=== PATIENT | male | born 1960 | race African-American/Black ===

== ENCOUNTER 2020-04-10 08:18 | Outpatient (REF) | payer OTHER, SELFPAY ==
[2020-04-10 11:00] LABS: MANUAL DIFF FLAG NO
[2020-04-10 11:08] LABS: Basophils Absolute Auto 0.1 X10*3/uL (0.0-0.2); Basophils Percent Auto 0.4 % (0-2); Eosinophils Absolute Auto 0.3 X10*3/uL (0.0-0.4); Hematocrit 45.9 % (42-52); Hemoglobin 15.4 g/dl (14.0-18.0); Imm Gran Abs Auto 0.07 X10*3/uL (0.00-0.03); Imm Gran Pct Auto 0.6 % (0.0-0.4); Lymphocytes Absolute Auto 2.3 X10*3/uL (1.2-4.9); Lymphocytes Percent Auto 19.9 % (20-40); Mean Corpuscular HGB Conc 33.6 g/dl (31.0-36.0); Mean Corpuscular Hemoglobin 31.5 pg (27.0-33.0); Mean Corpuscular Volume 93.9 fL (80-98); Mean Platelet Volume 11.2 fL (9.4-12.4); Monocytes Absolute Auto 0.9 X10*3/uL (0.1-1.2); Monocytes Percent Auto 7.6 % (2-11); Neutrophils Absolute Auto 7.7 X10*3/uL (2.0-8.3); Neutrophils Percent Auto 68.5 % (45-73); Platelet Count 337 X10*3/uL (160-400); Red Blood Count 4.89 X10*6/uL (4.60-5.80); Red Cell Distribution Width 13.3 % (11.0-16.0); White Blood Count 11.3 X10*3/uL (4.8-10.8)
[2020-04-10 11:42] LABS: Alanine Aminotransferase 24 U/L (0-40); Albumin Level 4.4 g/dL (3.5-5.0); Alkaline Phosphatase 86 U/L (39-117); Anion Gap 14 (12-20); Aspartate Amino Transferase 16 U/L (5-37); Bilirubin Total 0.2 mg/dL (0.0-1.0); Blood Urea Nitrogen 13 mg/dL (9-16); Calcium 9.7 mg/dL (8.4-10.2); Carbon Dioxide 25 mmol/L (22-29); Chloride 105 mmol/L (96-108); Cholesterol 157 mg/dL; Estimated Glomerular Filt Rate > 60; Glucose Random 121 mg/dL (60-115); HDL Cholesterol 47 mg/dL; LDL Cholesterol Calculated 89 mg/dl; Potassium 4.9 mmol/l (3.3-5.1); Sodium 139 mmol/L (135-145); Total Protein 8.1 g/dL (6.5-8.0); Triglycerides 107 mg/dL
== END 2020-04-10 08:19 | disposition home or self-care (01) ==
LOC: HO.10HDL 08:18
PROVIDERS: Visit Provider Internal Medicine
DX: Z00.00 Encounter for general adult medical examination without abnormal findings (principal); E78.2 Mixed hyperlipidemia; I10 Essential (primary) hypertension; F72 Severe intellectual disabilities; G40.109 Localization-related (focal) (partial) symptomatic epilepsy and epileptic syndromes with simple partial seizures, not intractable, without status epilepticus
CPT/HCPCS: 36415; 80053; 80061; 85025

== ENCOUNTER 2020-07-17 10:02 | Outpatient (REF) | payer OTHER, SELFPAY ==
[2020-07-17 14:29] LABS: Alanine Aminotransferase 22 U/L (0-40); Albumin Level 4.4 g/dL (3.5-5.0); Alkaline Phosphatase 84 U/L (39-117); Anion Gap 13 (12-20); Aspartate Amino Transferase 17 U/L (5-37); Bilirubin Total 0.3 mg/dL (0.0-1.0); Blood Urea Nitrogen 10 mg/dL (9-16); Calcium 9.5 mg/dL (8.4-10.2); Carbon Dioxide 26 mmol/L (22-29); Chloride 103 mmol/L (96-108); Estimated Glomerular Filt Rate > 60; Glucose Fasting 99 mg/dL (60-99); Potassium 4.3 mmol/l (3.3-5.1); Sodium 138 mmol/L (135-145); Total Protein 8.1 g/dL (6.5-8.0)
[2020-07-17 15:53] LABS: Phenytoin Dilantin 4.5 ug/mL (10.0-20.0)
== END 2020-07-17 10:03 | disposition home or self-care (01) ==
LOC: HO.10HDL 10:02
PROVIDERS: Visit Provider Internal Medicine
DX: I10 Essential (primary) hypertension (principal); E78.2 Mixed hyperlipidemia; F72 Severe intellectual disabilities; G40.109 Localization-related (focal) (partial) symptomatic epilepsy and epileptic syndromes with simple partial seizures, not intractable, without status epilepticus
CPT/HCPCS: 36415; 80053; 80185

== ENCOUNTER 2021-02-02 07:55 | Outpatient (REF) | payer OTHER, SELFPAY ==
[2021-02-02 08:45] LABS: MANUAL DIFF FLAG NO
[2021-02-02 08:55] LABS: Basophils Absolute Auto 0.1 X10*3/uL (0.0-0.2); Basophils Percent Auto 0.5 % (0-2); Eosinophils Absolute Auto 0.6 X10*3/uL (0.0-0.4); Eosinophils Percent Auto 5.9 % (0-4); Hematocrit 45.1 % (42-52); Hemoglobin 15.3 g/dl (14.0-18.0); Imm Gran Abs Auto 0.05 X10*3/uL (0.00-0.03); Imm Gran Pct Auto 0.5 % (0.0-0.4); Lymphocytes Absolute Auto 1.8 X10*3/uL (1.2-4.9); Lymphocytes Percent Auto 17.2 % (20-40); Mean Corpuscular HGB Conc 33.9 g/dl (31.0-36.0); Mean Corpuscular Hemoglobin 31.4 pg (27.0-33.0); Mean Corpuscular Volume 92.4 fL (80-98); Mean Platelet Volume 11.2 fL (9.4-12.4); Monocytes Absolute Auto 0.9 X10*3/uL (0.1-1.2); Monocytes Percent Auto 8.1 % (2-11); Neutrophils Absolute Auto 7.3 X10*3/uL (2.0-8.3); Neutrophils Percent Auto 67.8 % (45-73); Platelet Count 316 X10*3/uL (160-400); Red Blood Count 4.88 X10*6/uL (4.60-5.80); Red Cell Distribution Width 13.3 % (11.0-16.0); White Blood Count 10.7 X10*3/uL (4.8-10.8)
[2021-02-02 09:13] LABS: Alanine Aminotransferase 16 U/L (0-40); Albumin Level 4.5 g/dL (3.5-5.0); Alkaline Phosphatase 71 U/L (39-117); Anion Gap 11 (12-20); Aspartate Amino Transferase 14 U/L (5-37); Bilirubin Total 0.4 mg/dL (0.0-1.0); Blood Urea Nitrogen 14 mg/dL (9-16); Carbon Dioxide 26 mmol/L (22-29); Chloride 104 mmol/L (96-108); Cholesterol 151 mg/dL; Estimated Glomerular Filt Rate > 60; Glucose Random 121 mg/dL (60-115); HDL Cholesterol 43 mg/dL; LDL Cholesterol Calculated 87 mg/dl; Potassium 4.3 mmol/L (3.3-5.1); Sodium 137 mmol/L (135-145); Total Protein 8.1 g/dL (6.5-8.0); Triglycerides 107 mg/dL
[2021-02-02 09:37] LABS: Prostate Specific Antigen 1.35 ng/mL (<0.05-4.0)
[2021-02-02 11:00] LABS: Phenytoin Dilantin 3.5 ug/mL (10.0-20.0)
== END 2021-02-02 07:56 | disposition home or self-care (01) ==
LOC: HO.LAB 07:55
PROVIDERS: PCP Internal Medicine; Visit Provider Internal Medicine
DX: Z12.5 Encounter for screening for malignant neoplasm of prostate (principal); E78.2 Mixed hyperlipidemia; G40.109 Localization-related (focal) (partial) symptomatic epilepsy and epileptic syndromes with simple partial seizures, not intractable, without status epilepticus; I10 Essential (primary) hypertension; N30.00 Acute cystitis without hematuria; Z79.899 Other long term (current) drug therapy
CPT/HCPCS: 36415; 80053; 80061; 80185; 84153; 85025

== ENCOUNTER 2021-03-27 08:18 | Outpatient (REF) | payer OTHER, SELFPAY ==
[2021-03-27 10:08] LABS: MANUAL DIFF FLAG NO
[2021-03-27 10:16] LABS: Basophils Absolute Auto 0.1 X10*3/uL (0.0-0.2); Basophils Percent Auto 0.6 % (0-2); Eosinophils Absolute Auto 0.5 X10*3/uL (0.0-0.4); Eosinophils Percent Auto 4.7 % (0-4); Hematocrit 46.4 % (42-52); Hemoglobin 15.5 g/dl (14.0-18.0); Imm Gran Abs Auto 0.04 X10*3/uL (0.00-0.03); Imm Gran Pct Auto 0.4 % (0.0-0.4); Lymphocytes Absolute Auto 1.7 X10*3/uL (1.2-4.9); Lymphocytes Percent Auto 17.3 % (20-40); Mean Corpuscular HGB Conc 33.4 g/dl (31.0-36.0); Mean Corpuscular Hemoglobin 31.1 pg (27.0-33.0); Mean Platelet Volume 11.3 fL (9.4-12.4); Monocytes Absolute Auto 0.8 X10*3/uL (0.1-1.2); Monocytes Percent Auto 7.7 % (2-11); Neutrophils Absolute Auto 6.9 X10*3/uL (2.0-8.3); Neutrophils Percent Auto 69.3 % (45-73); Platelet Count 329 X10*3/uL (160-400); Red Blood Count 4.99 X10*6/uL (4.60-5.80); Red Cell Distribution Width 13.4 % (11.0-16.0); White Blood Count 9.9 X10*3/uL (4.8-10.8)
[2021-03-27 10:45] LABS: Alanine Aminotransferase 17 U/L (0-40); Albumin Level 4.3 g/dL (3.5-5.0); Alkaline Phosphatase 64 U/L (39-117); Anion Gap 13 (12-20); Aspartate Amino Transferase 14 U/L (5-37); Bilirubin Total 0.5 mg/dL (0.0-1.0); Blood Urea Nitrogen 12 mg/dL (9-16); Calcium 9.9 mg/dL (8.4-10.2); Carbon Dioxide 24 mmol/L (22-29); Chloride 107 mmol/L (96-108); Estimated Glomerular Filt Rate > 60; Glucose Fasting 107 mg/dL (60-99); Potassium 4.5 mmol/L (3.3-5.1); Sodium 139 mmol/L (135-145); Total Protein 7.7 g/dL (6.5-8.0)
[2021-03-27 10:54] LABS: Phenytoin Dilantin 3.8 ug/mL (10.0-20.0)
== END 2021-03-27 08:19 | disposition home or self-care (01) ==
LOC: HO.10HDL 08:18
PROVIDERS: Visit Provider Internal Medicine
DX: Z00.00 Encounter for general adult medical examination without abnormal findings (principal); E78.2 Mixed hyperlipidemia; G40.109 Localization-related (focal) (partial) symptomatic epilepsy and epileptic syndromes with simple partial seizures, not intractable, without status epilepticus; I10 Essential (primary) hypertension; Z79.899 Other long term (current) drug therapy
CPT/HCPCS: 36415; 80053; 80185; 85025

== ENCOUNTER → 2021-10-04 10:40 | Outpatient (BNVA) | payer OTHER, SELFPAY | PROVIDERS: PCP Internal Medicine | DX: R39.15 Urgency of urination (principal) | CPT/HCPCS: 51798; 99202 ==

== ENCOUNTER 2021-11-29 10:34 | Outpatient (REF) | payer MEDICARE, MEDICAID, SELFPAY ==
[2021-11-29 13:58] LABS: MANUAL DIFF FLAG NO
[2021-11-29 14:01] LABS: Basophils Percent Auto 0.3 % (0-2); Eosinophils Absolute Auto 0.4 X10*3/uL (0.0-0.4); Hematocrit 47.4 % (42.0-52.0); Hemoglobin 16.1 g/dl (14.0-18.0); Imm Gran Abs Auto 0.05 X10*3/uL (0.00-0.03); Imm Gran Pct Auto 0.5 % (0.0-0.4); Lymphocytes Absolute Auto 2.2 X10*3/uL (1.2-4.9); Lymphocytes Percent Auto 23.1 % (20-40); Mean Corpuscular Hemoglobin 31.7 pg (27.0-33.0); Mean Corpuscular Volume 93.3 fL (80.0-98.0); Mean Platelet Volume 11.9 fL (9.4-12.4); Monocytes Percent Auto 10.2 % (2-11); Neutrophils Absolute Auto 5.9 x10*3/uL (2.0-8.3); Neutrophils Percent Auto 61.9 % (45-73); Platelet Count 330 X10*3/uL (160-400); Red Blood Count 5.08 X10*6/uL (4.60-5.80); Red Cell Distribution Width 13.3 % (11.0-16.0); White Blood Count 9.6 X10*3/uL (4.8-10.8)
[2021-11-29 14:15] LABS: Alanine Aminotransferase 19 U/L (0-40); Albumin Level 4.5 g/dL (3.5-5.0); Alkaline Phosphatase 83 U/L (39-117); Anion Gap 13 (12-20); Aspartate Amino Transferase 15 U/L (5-37); Bilirubin Total 0.3 mg/dL (0.0-1.0); Blood Urea Nitrogen 15 mg/dL (9-16); Carbon Dioxide 26 mmol/L (22-29); Chloride 103 mmol/L (96-108); Cholesterol 152 mg/dL; Estimated Glomerular Filt Rate > 60; Glucose Random 102 mg/dL (60-115); HDL Cholesterol 42 mg/dL; LDL Cholesterol Calculated 87 mg/dl; Potassium 4.4 mmol/L (3.3-5.1); Sodium 138 mmol/L (135-145); Total Protein 8.3 g/dL (6.5-8.0); Triglycerides 116 mg/dL
[2021-11-29 14:37] LABS: Prostate Specific Antigen 1.41 ng/mL (<0.05-4.0); Thyroid Stimulating Hormone 1.61 uIU/mL (0.32-4.0)
== END 2021-11-29 10:35 | disposition home or self-care (01) ==
LOC: HO.HMGCLDS 10:34
PROVIDERS: Absent Provider Urology; PCP Internal Medicine; Visit Provider Internal Medicine
DX: Z12.5 Encounter for screening for malignant neoplasm of prostate (principal); E78.2 Mixed hyperlipidemia; G40.109 Localization-related (focal) (partial) symptomatic epilepsy and epileptic syndromes with simple partial seizures, not intractable, without status epilepticus; I10 Essential (primary) hypertension; R35.0 Frequency of micturition
CPT/HCPCS: 36415; 80053; 80061; 84153; 84443; 85025

== ENCOUNTER → 2022-02-28 08:37 | Outpatient (BNVA) | payer MEDICARE, MEDICAID, SELFPAY | PROVIDERS: PCP Internal Medicine; Visit Provider Urology | DX: N40.1 Benign prostatic hyperplasia with lower urinary tract symptoms (principal); R35.0 Frequency of micturition | CPT/HCPCS: Q3014 ==

== ENCOUNTER → 2022-06-12 12:49 | Outpatient (BNVA) | payer MEDICARE, MEDICAID, SELFPAY | PROVIDERS: PCP Internal Medicine; Visit Provider Urology | DX: R35.0 Frequency of micturition (principal) | CPT/HCPCS: Q3014 ==

== ENCOUNTER 2022-07-30 10:41 | Outpatient (REF) | payer MEDICARE, MEDICAID, SELFPAY ==
[2022-07-30 14:20] LABS: Basophils Absolute Auto 0.1 X10*3/uL (0.0-0.2); Basophils Percent Auto 0.5 % (0-2); Eosinophils Absolute Auto 0.2 X10*3/uL (0.0-0.4); Eosinophils Percent Auto 2.3 % (0-4); Hemoglobin 15.9 g/dl (14.0-18.0); Imm Gran Abs Auto 0.03 X10*3/uL (0.00-0.03); Imm Gran Pct Auto 0.3 % (0.0-0.4); Lymphocytes Absolute Auto 1.9 X10*3/uL (1.2-4.9); Lymphocytes Percent Auto 19.4 % (20-40); MANUAL DIFF FLAG NO; Mean Corpuscular HGB Conc 33.8 g/dl (31.0-36.0); Mean Corpuscular Hemoglobin 31.1 pg (27.0-33.0); Mean Corpuscular Volume 91.8 fL (80.0-98.0); Mean Platelet Volume 11.4 fL (9.4-12.4); Monocytes Absolute Auto 0.8 X10*3/uL (0.1-1.2); Monocytes Percent Auto 8.3 % (2-11); Neutrophils Absolute Auto 6.6 x10*3/uL (2.0-8.3); Neutrophils Percent Auto 69.2 % (45-73); Platelet Count 278 X10*3/uL (160-400); Red Blood Count 5.12 X10*6/uL (4.60-5.80); Red Cell Distribution Width 13.2 % (11.0-16.0); White Blood Count 9.6 X10*3/uL (4.8-10.8)
[2022-07-30 15:32] LABS: Alanine Aminotransferase 18 U/L (0-40); Albumin Level 4.3 g/dL (3.5-5.0); Alkaline Phosphatase 88 U/L (39-117); Anion Gap 15 (12-20); Aspartate Amino Transferase 15 U/L (5-37); Bilirubin Total 0.3 mg/dL (0.0-1.0); Blood Urea Nitrogen 12 mg/dL (9-16); Calcium 9.5 mg/dL (8.4-10.2); Carbon Dioxide 25 mmol/L (22-29); Chloride 102 mmol/L (96-108); Cholesterol 118 mg/dL; Estimated Glomerular Filt Rate > 60; Glucose Fasting 108 mg/dL (60-99); HDL Cholesterol 31 mg/dL; LDL Cholesterol Calculated 61 mg/dl; Potassium 4.1 mmol/L (3.3-5.1); Prostate Specific Antigen 2.05 ng/mL (<0.05-4.0); Sodium 138 mmol/L (135-145); Thyroid Stimulating Hormone 1.86 uIU/mL (0.32-4.0); Total Protein 7.7 g/dL (6.5-8.0); Triglycerides 130 mg/dL
== END 2022-07-30 10:42 | disposition home or self-care (01) ==
LOC: HO.10HDL 10:41
PROVIDERS: Visit Provider Internal Medicine
DX: Z00.00 Encounter for general adult medical examination without abnormal findings (principal); Z12.5 Encounter for screening for malignant neoplasm of prostate; I10 Essential (primary) hypertension
CPT/HCPCS: 36415; 80053; 80061; 84153; 84443; 85025

== ENCOUNTER 2022-08-08 10:17 | Outpatient (REF) | payer MEDICARE, MEDICAID, SELFPAY ==
[2022-08-10 19:49] LABS: TS Negative Control Passed; TS Panel A 0; TS Panel B 0; TS Positive Control Passed; TSpotTB Negative (Negative)
== END 2022-08-08 10:18 | disposition home or self-care (01) ==
LOC: HO.10HDL 10:17
PROVIDERS: Visit Provider Internal Medicine
DX: Z11.1 Encounter for screening for respiratory tuberculosis (principal)
CPT/HCPCS: 36415; 86481

== ENCOUNTER 2022-11-29 07:50 | Outpatient (REF) | payer MEDICARE, MEDICAID, SELFPAY ==
[2022-11-29 11:26] LABS: Alanine Aminotransferase 29 U/L (0-40); Albumin Level 4.3 g/dL (3.5-5.0); Alkaline Phosphatase 91 U/L (39-117); Anion Gap 13 (12-20); Aspartate Amino Transferase 17 U/L (5-37); Bilirubin Total 0.5 mg/dL (0.0-1.0); Blood Urea Nitrogen 12 mg/dL (9-16); Calcium 9.5 mg/dL (8.4-10.2); Carbon Dioxide 26 mmol/L (22-29); Chloride 104 mmol/L (96-108); Estimated Glomerular Filt Rate > 60; Glucose Fasting 117 mg/dL (60-99); Potassium 4.3 mmol/L (3.3-5.1); Sodium 139 mmol/L (135-145); Total Protein 7.9 g/dL (6.5-8.0)
== END 2022-11-29 07:51 | disposition home or self-care (01) ==
LOC: HO.10HDL 07:50
PROVIDERS: Visit Provider Internal Medicine
DX: E78.00 Pure hypercholesterolemia, unspecified (principal); F32.5 Major depressive disorder, single episode, in full remission; I10 Essential (primary) hypertension; R73.01 Impaired fasting glucose; Z11.1 Encounter for screening for respiratory tuberculosis
CPT/HCPCS: 36415; 80053

== ENCOUNTER 2023-05-28 08:45 | Outpatient (AMB) | payer MEDICARE, MEDICAID, SELFPAY ==
--- NOTE | 2023-05-28 09:02 | A.OFFVIS_ITS ---
Intake Intake Visit Reasons: frequency- follow up/PVR Intake Note: Patient is present for Frequency Follow Up Urology Medication: Terazosin Blood Thinner: None PVR: 143ml's Ethylene Oxide Panelboard Operator Required: Yes Accompanied by: Unknown Allergies No Known Allergies Allergy (Verified 05/28/23 09:03) Medication List - Last Reconciled 05/28/23 by Jaswinder Castro MD fenofibrate 160 mg PO DAILY hydroxyzine HCl 25 mg PO BEDTIME hydroxyzine pamoate 25 mg PO DAILY PRN hydroxyzine pamoate 50 mg PO DAILY PRN lisinopril-hydrochlorothiazide 20-12.5 mg 1 tab PO DAILY lisinopril-hydrochlorothiazide 20-25 mg 1 tab PO DAILY paroxetine HCl 10 mg PO DAILY phenytoin sodium extended 100 mg PO TID sertraline 50 mg PO DAILY terazosin 5 mg PO BEDTIME 90 days HPI HPI Comments History of Present Illness Details Dm is a pleasant Bhutanese-speaking male. He is cared for by his family since he had cognitive deficits at and a seizure disorder. He is a patient of Dr. Peng. He is seen for the following urologic conditions - urgency frequency Voiding followup - PVR 15mls Discussion with niece who is caregiver Continues with alpha-olimpia - teraozisn 5mg Improved urgency and no accidents Does have some nocturia but drinks water prior to going to bed Follow-up 6 months PSA below 2.5 so not candidate finasteride Does have occasional constipation treated with MiraLax Lower urinary tract symptoms Predominantly irritative in nature Normal PVR PSA 11/25 1.4 PFSH Medical History Urinary frequency Advance Directives Date on File: 04/10/20 Review of Systems Const Denies chills and Denies fever(s) Card Reports no additional complaints and Denies syncope Resp Denies cough GI Denies abdominal pain and Denies heartburn Reports as per HPI and Denies change in libido Neuro Denies syncope Psych Denies change in libido Endo Denies change in libido Physical Exam Const General: cooperative, healthy appearing, comfortable and no acute distress Orientation/consciousness: patient oriented x3 HEENT Face and sinus: Yes normal facial exam Mouth: moist mucous membranes Neck Neck: Yes normal visual inspection, Yes full ROM and Yes trachea midline Chest Chest palpation & inspection: normal inspection of the chest Resp Effort & Inspection: normal respiratory effort, able to speak in complete sentences and no respiratory distress GI Inspection: Yes normal to inspection Back/Spine/Pelvis Cervical Spine: normal cervical lordosis Thoracic/Lumbar Spine: thoracic and lumbar spine normal to inspection Skin General skin exam: no rashes or lesions noted Neuro General: patient oriented x3, gait normal, tone normal and moves all extremities Extrem General: Yes normal to inspection and Yes capillary refill normal Office Procedures Post Void Residual Post Residual Void Post Void Residual (PVR): 14 20105-Ltlj Void Residual by ultrasound Results AMB Urinalysis, Automated UA Leukoctes 0 Hunter/uL Last Edit by [employer] on 05/28/23 09:17 UA Nitrite Negative Last Edit by [employer] on 05/28/23 09:17 UA Urobilinogen 0.2 mg/dL Last Edit by [employer] on 05/28/23 09:17 UA Protein 0 mg/dL Last Edit by [employer] on 05/28/23 09:17 UA pH 6.0 Last Edit by [employer] on 05/28/23 09:17 UA Blood 0 Richard/uL Last Edit by [employer] on 05/28/23 09:17 UA Specific Mosquero 1.020 Last Edit by [employer] on 05/28/23 09:17 UA Ketone Negative Last Edit by [employer] on 05/28/23 09:17 UA Bilirubin 0 mg/dL Last Edit by [employer] on 05/28/23 09:17 UA Glucose 0 mg/dL Last Edit by [employer] on 05/28/23 09:17 Results Reviewed Results Reviewed: Laboratory Last Values Urine pH (Auto) 6.0 05/28/23 09:03 Specific [place] (Auto) 1.020 05/28/23 09:03 Urine Protein (Auto) 0 mg/dL 05/28/23 09:03 Glucose (UA)(Auto) 0 mg/dL 05/28/23 09:03 Urine Ketones (Auto) Negative 05/28/23 09:03 Urine Blood (Auto) 0 Richard/uL 05/28/23 09:03 Urine Nitrite (Auto) Negative 05/28/23 09:03 Urine Bilirubin (Auto) 0 mg/dL 05/28/23 09:03 Urine Urobilinogen (Auto) 0.2 mg/dL 05/28/23 09:03 Leukocyte Esterase (Auto) 0 Hunter/uL 05/28/23 09:03 Assessment & Plan Assessment & Plan (1) Urinary frequency: Code(s): R35.0 - Frequency of micturition Plan Twelve month follow-up PVR Orders: Orders AMB Urinalysis Automated Today Z13.9 - Encounter for screening, unspecified AMB Post Void Residual by ultrasound Today R35.0 - Frequency of micturition Medications: Refilled terazosin 5 mg PO BEDTIME 90 caps 3RF 90 days N40.1 - Benign prostatic hyperplasia with lower urinary tract symptoms, R35.0 - Frequency of micturition Patient Instructions: Imaging studies, laboratory and physical exam results were discussed and reviewed in detail. No major barriers to patient understanding were identified. An opportunity to ask questions regarding the treatment plan was provided. All questions were answered. The patient expressed understanding and agreement with the above treatment plan. The patient is aware they should contact our office by phone for worsening of their current condition or the appearance of new urologic symptoms. Compliance is encouraged with any medications and followup testing that is ordered. It is a privilege to participate in the urologic care of your patient. If you have any questions or concerns regarding treatment for the above conditions, or other urologic issues, please do not hesitate to contact me. The office telephone contact is [phone]. This note is constructed using voice recognition software. While every effort has been made to ensure accuracy campaign consultant errors may have been included. Yours sincerely, Dr Jaswinder Castro MD, [facility] - Urology Providers of Expert, Compassionate Care for the Genitourinary System Coding Level of Care Code Est Pt Level 4 (25764) Diagnoses Urinary frequency R35.0 CPT Codes Post Residual Void - PVR CPT Code: 78413-Jphl Void Residual by ultrasound ([id number])
== END 2023-05-28 09:26 | disposition home or self-care (01) ==
PROVIDERS: PCP Internal Medicine; Visit Provider Urology
DX: R35.0 Frequency of micturition (principal); Z13.9 Encounter for screening, unspecified
CPT/HCPCS: 99213

== ENCOUNTER → 2023-05-28 08:45 | Outpatient (BNVA) | payer MEDICARE, MEDICAID, SELFPAY | PROVIDERS: PCP Internal Medicine; Visit Provider Urology | DX: R35.0 Frequency of micturition (principal) | CPT/HCPCS: 51798; 81003; 99212 ==

== ENCOUNTER 2023-07-24 07:45 | Outpatient (REF) | payer MEDICARE, MEDICAID, SELFPAY ==
[2023-07-24 07:59] LABS: MANUAL DIFF FLAG NO
[2023-07-24 08:09] LABS: Basophils Percent Auto 0.4 % (0-2); Eosinophils Absolute Auto 0.3 X10*3/uL (0.0-0.4); Eosinophils Percent Auto 3.7 % (0-4); Hematocrit 46.2 % (42.0-52.0); Hemoglobin 16.2 g/dl (14.0-18.0); Imm Gran Abs Auto 0.02 X10*3/uL (0.00-0.03); Imm Gran Pct Auto 0.2 % (0.0-0.4); Lymphocytes Absolute Auto 1.8 X10*3/uL (1.2-4.9); Lymphocytes Percent Auto 20.9 % (20-40); Mean Corpuscular HGB Conc 35.1 g/dl (31.0-36.0); Mean Corpuscular Hemoglobin 32.7 pg (27.0-33.0); Mean Corpuscular Volume 93.3 fL (80.0-98.0); Mean Platelet Volume 11.1 fL (9.4-12.4); Monocytes Absolute Auto 0.6 X10*3/uL (0.1-1.2); Monocytes Percent Auto 7.5 % (2-11); Neutrophils Absolute Auto 5.6 x10*3/uL (2.0-8.3); Neutrophils Percent Auto 67.3 % (45-73); Platelet Count 240 X10*3/uL (160-400); Red Blood Count 4.95 X10*6/uL (4.60-5.80); Red Cell Distribution Width 13.3 % (11.0-16.0); White Blood Count 8.4 X10*3/uL (4.8-10.8)
[2023-07-24 08:18] LABS: Estimated Average Glucose 111 mg/dL; Hemoglobin A1c % 5.5 % (<6.0)
[2023-07-24 08:44] LABS: Alanine Aminotransferase 24 U/L (0-40); Albumin Level 4.1 g/dL (3.5-5.0); Alkaline Phosphatase 99 U/L (39-117); Anion Gap 12 (12-20); Aspartate Amino Transferase 17 U/L (5-37); Bilirubin Total 0.3 mg/dL (0.0-1.0); Blood Urea Nitrogen 12 mg/dL (9-16); Calcium 9.3 mg/dL (8.4-10.2); Carbon Dioxide 24 mmol/L (22-29); Chloride 107 mmol/L (96-108); Cholesterol 110 mg/dL (<200); Estimated Glomerular Filt Rate > 60; Glucose Random 136 mg/dL (60-115); HDL Cholesterol 30 mg/dL (>40); LDL Cholesterol Calculated 51 mg/dL (<100); Potassium 3.7 mmol/L (3.3-5.1); Sodium 139 mmol/L (135-145); Total Protein 7.6 g/dL (6.5-8.0); Triglycerides 146 mg/dL (<150)
[2023-07-24 08:59] LABS: Thyroid Stimulating Hormone 2.22 uIU/mL (0.32-4.0)
== END 2023-07-24 07:46 | disposition home or self-care (01) ==
LOC: HO.LAB 07:45
PROVIDERS: PCP Internal Medicine; Visit Provider Internal Medicine
DX: E78.00 Pure hypercholesterolemia, unspecified (principal); G40.109 Localization-related (focal) (partial) symptomatic epilepsy and epileptic syndromes with simple partial seizures, not intractable, without status epilepticus; I10 Essential (primary) hypertension; N31.8 Other neuromuscular dysfunction of bladder; R15.9 Full incontinence of feces; R73.01 Impaired fasting glucose
CPT/HCPCS: 36415; 80053; 80061; 83036; 84443; 85025

== ENCOUNTER 2023-08-16 07:31 | Outpatient (REF) | payer MEDICARE, MEDICAID, SELFPAY ==
--- NOTE | ~2023-08-16 | XR_ITS ---
EXAMINATION: XR LEFT ANKLE, LEFT FOOT CLINICAL INFORMATION: Ankle and foot pain, no injury. COMPARISON: 05/14/2013 left ankle images are provided today 08/20/2023. TECHNIQUE: 2 views of the left ankle. 3 views of the left foot. FINDINGS: Left Ankle: The bones are diffusely demineralized. Redemonstration of severe degenerative arthritis in the tibiotalar and subtalar joints with marked flattening of the subjacent articular surfaces and hypertrophic change. Redemonstration of marked spurring at the dorsal and plantar aspects of the calcaneus. Redemonstration of dystrophic calcifications in the soft tissues along the plantar aspect of the calcaneus, increased. Moderate degenerative arthritis in the mid foot. Left Foot: The bones are diffusely demineralized. Mild degenerative changes in the first metatarsophalangeal joint. Alignment preserved. XR/XR foot LT min 3V IMPRESSION: 1. Redemonstration of severe degenerative arthritis in the tibiotalar and subtalar joints. 2. Redemonstration of marked spurring at the dorsal and plantar aspects of the calcaneus. 3. Moderate degenerative arthritis in the mid foot. 4. Mild degenerative changes in the first metatarsophalangeal joint. 5. Additional imaging with CT scan or MRI should be considered for better visualization as these modalities are much more sensitive for detection of fracture or other underlying pathology.
--- NOTE | ~2023-08-16 | XR_ITS ---
EXAMINATION: XR LEFT ANKLE, LEFT FOOT CLINICAL INFORMATION: Ankle and foot pain, no injury. COMPARISON: 05/14/2013 left ankle images are provided today 08/20/2023. TECHNIQUE: 2 views of the left ankle. 3 views of the left foot. FINDINGS: Left Ankle: The bones are diffusely demineralized. Redemonstration of severe degenerative arthritis in the tibiotalar and subtalar joints with marked flattening of the subjacent articular surfaces and hypertrophic change. Redemonstration of marked spurring at the dorsal and plantar aspects of the calcaneus. Redemonstration of dystrophic calcifications in the soft tissues along the plantar aspect of the calcaneus, increased. Moderate degenerative arthritis in the mid foot. Left Foot: The bones are diffusely demineralized. Mild degenerative changes in the first metatarsophalangeal joint. Alignment preserved. XR/XR ankle LT 2V IMPRESSION: 1. Redemonstration of severe degenerative arthritis in the tibiotalar and subtalar joints. 2. Redemonstration of marked spurring at the dorsal and plantar aspects of the calcaneus. 3. Moderate degenerative arthritis in the mid foot. 4. Mild degenerative changes in the first metatarsophalangeal joint. 5. Additional imaging with CT scan or MRI should be considered for better visualization as these modalities are much more sensitive for detection of fracture or other underlying pathology.
== END 2023-08-16 07:32 | disposition home or self-care (01) ==
LOC: HO.XRAY 07:31
PROVIDERS: PCP Internal Medicine; Visit Provider Internal Medicine
DX: M25.572 Pain in left ankle and joints of left foot (principal)
CPT/HCPCS: 73600; 73630

== ENCOUNTER 2023-09-25 09:40 | Outpatient (AMB) | payer MEDICARE, MEDICAID, SELFPAY ==
--- NOTE | 2023-09-25 10:04 | A.OFFVIS_ITS ---
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 Patient niece states surgery on bilateral feet back in the 70's due to inverted feet. She is unaware of where he had the surgery. He was recently seen by his PCP who ordered xrays and referred to orthopedics. She states recently he has been dragging his foot more than usual. He does not complain of pain however his niece notices his facial expressions and knows he has discomfort. Hx of severe cognitive impairment and seizures. Allergies No Known Allergies Allergy (Verified 09/25/23 10:15) HPI packing room supervisor- LT ANKLE PAIN HPI Details 63-year-old male who presents to the off ice today with his niece for evaluation of left ankle pain. He had a bilateral feet surgery in the 1970s due to inverted feet. Her niece reports she is unaware of the DOS. He was recently seen by his PCP who performed and x-rays and referred him to our office. Her niece reports he has been dragging his feet more than usual. He denies having any pain however his niece notices his facial expressions and knows he has discomfort. He has a history of severe cognitive impairment and seizures. [facility] Medical History (Updated 09/25/23 @ 11:23 by Adolfo Mcclellan PA-C) Urinary frequency Surgical History (Updated 09/25/23 @ 10:19 by CAITIE Bonilla) History of foot surgery Social History (Updated 09/25/23 @ 10:11 by CAITIE Bonilla) Patient Tobacco Use Status: Never used Tobacco Advance Directives Date on File: 04/10/20 Current occupational status: unemployed and disabled Review of Systems Const All systems reviewed & are unremarkable except as noted in HPI and below Physical Exam Vital Signs: BMI result Body Mass Index 28.7 Const General: cooperative, healthy appearing, comfortable, no acute distress, well developed and alert Orientation/consciousness: patient oriented x3 HEENT Head: Yes normal to inspection, Yes normocephalic and Yes atraumatic Eyes General: appearance normal, both eyes and all related structures Resp Effort & Inspection: normal respiratory effort and able to speak in complete sentences Cardio Rate: regular rate Peripheral pulses: Peripheral pulses 2+ throughout GI Palpation (GI): Soft to palpation Skin Lesions: no lesions Rashes: no rashes Neuro General: patient oriented x3 Extrem Other: Left foot: Normal to inspection. He has no tenderness to palpation. There is obvious joint collapse along the medial aspect of ankle. NVI. Results Reviewed Results Reviewed: X-rays of the left foot and ankle obtained on 08/16/23 show severe OA with joint collapse. Assessment & Plan Assessment & Plan (1) Osteoarthritis of left ankle: Code(s): M19.072 - Primary osteoarthritis, left ankle and foot Plan I discussed with his niece who is also his technical program manager that the extent of his arthritis limits treatment options as the recommendations would be conservative with being strengthening exercises and OTC anti-inflammatories for pain. If he had pain and significant limitations with ambulation, I would have disused about ankle fusion and also refer him to a foot and ankle specialist. He does not appear in pain and can walk without difficulty. She will contact moving forward if he develops any limitations, otherwise as needed. Patient Instructions: Scribed for Adolfo Mcclellan PA-C, by Zeeshan Ramires medical services manager, on 09/25/2023 at 10:00 AM EST. I, Adolfo Mcclellan PA-C, have personally reviewed and agree with the information entered by the scribe. Coding Level of Care Code New Pt Level 3 (03947) Diagnoses Osteoarthritis of left ankle M19.072
[2023-09-25 10:08] VITALS: BMI 28.7
== END 2023-09-25 10:55 | disposition home or self-care (01) ==
PROVIDERS: PCP Internal Medicine; Visit Provider Physician Assistant
DX: M19.072 Primary osteoarthritis, left ankle and foot (principal)
CPT/HCPCS: 99203

== ENCOUNTER → 2023-09-25 09:40 | Outpatient (BNVA) | payer MEDICARE, MEDICAID, SELFPAY | PROVIDERS: PCP Internal Medicine; Visit Provider Physician Assistant | DX: M19.072 Primary osteoarthritis, left ankle and foot (principal) | CPT/HCPCS: 99202 ==

== ENCOUNTER 2023-11-04 07:51 | Outpatient (REF) | payer MEDICARE, MEDICAID, SELFPAY ==
[2023-11-07 00:53] LABS: TS Negative Control Passed; TS Panel A 0; TS Panel B 0; TS Positive Control Passed; TSpotTB Negative (Negative)
== END 2023-11-04 07:52 | disposition home or self-care (01) ==
LOC: HO.10HDL 07:51
PROVIDERS: Visit Provider Internal Medicine
DX: Z11.1 Encounter for screening for respiratory tuberculosis (principal)
CPT/HCPCS: 36415; 86481

== ENCOUNTER 2024-02-03 06:26 | Day surgery (SDC) | payer MEDICARE, MEDICAID, SELFPAY ==
[2024-01-30 14:05] VITALS: BMI 32.8
--- OUTSIDE RECORDS SUMMARY | 2024-02-03 06:28 | XMS_ITS ---
Author Organization [facility] Address [address] [place] [address] Care Team Providers Care Belt Notcher Name Role Phone JalilBri price Primary Care Provider Unavailab Russell Galvan Jr REASON FOR VISIT SCREENING COLON Encounters Encounter Location Date Provider Diagnosis [facility] [place] Outpatient [address] [place] [id number] 12/12/2023 Russell Cuadra Jr PLAN OF TREATMENT Next Appt Details Provider Name:Russell gentile Jr, 02/03/2024 07:30:00 AM, [address] [place] [address] , [place], [place], [phone],
--- OUTSIDE RECORDS SUMMARY | 2024-02-03 06:28 | XMS_ITS ---
Author Organization [facility] Address [address] [place] [address] Care Team Providers Care Jackhammer Operator Name Role Phone JalilBri price Primary Care Provider Unavailab Russell Galvan Jr [phone] REASON FOR VISIT screening Encounters Encounter Location Date Provider Diagnosis [facility] [place] [place] Out[place] [address] [place] [id number] 02/03/2024 Russell Cuadra Jr PLAN OF TREATMENT Next Appt Details Provider Name:Russell gentile Jr, 02/03/2024 07:30:00 AM, [address] [place] [address] , [place], [place], [phone],
--- OUTSIDE RECORDS SUMMARY | 2024-02-03 06:28 | XMS_ITS ---
Author Organization [facility] Address [address] [place] [address] Care Team Providers Care Meat Apprentice Name Role Phone Bri Peng Primary Care Provider Unavailab Russell Galvan Jr [phone] REASON FOR VISIT r/s Encounters Encounter Location Date Provider Diagnosis [facility] [address] [place] [address] 11/05/2023 Russell Cuadra Jr PLAN OF TREATMENT Next Appt Details Provider Name:Russell gentile Jr, 02/03/2024 07:30:00 AM, [address] [place] [address] , [place], [place], [phone],
--- OUTSIDE RECORDS SUMMARY | 2024-02-03 06:28 | XMS_ITS | Patient Health Record ---
Author Organization [facility] Address [address] [place] [address] Care Team Providers Care Mail Handler Equipment Operator Name Role Phone Bri Peng Primary Care Provider Unavailab Russell Galvan Jr Unavailable ALLERGIES No Known Allergies REASON FOR REFERRAL No Information MEDICATIONS Medication SIG (Take, Route, Frequency, Duration) Notes Start Date End Date Status PARoxetine HCl 20 MG TAKE 1 TABLET BY MO UTH EVERY DAY Oral for 90 Active Lisinopril 10 MG TAKE 1 TABLET BY COURTNEY TH EVERY DAY Oral for 90 Active Sertraline HCl 50 MG TAKE 1 TABLET BY MO UTH EVERY MORNING Oral for 55 Active Golytely 236 GM as directed before colonoscopy Orally every 15 minutes for 1 day(s) 10/15/2023 Active MiraLax - as directed Orally A ctive Atorvastatin Calcium 20 MG TAKE 1 TABLET BY MOUTH EVERYDAY AT BEDTIME Oral for 90 Active Phenytoin Sodium Extended 100 MG TAKE 1 CAPSULE BY MOUTH THREE TIMES A DAY Oral for 90 Active IMMUNIZATIONS Vaccine Route Administration Date Status Comme nts Influenza Unknown 03/07/2018 Administered Influenza Unknown 05/27/2023 Administered SOCIAL HISTORY Tobacco Use: Social History Observation Description Date Details (start date - stop date) Never Smoker NA - NA Sex Assigned At : Social History Observation Description Sex Assigned At Unknown Tobacco Use/Smoking Question Answer Notes Patient is a nonsmoker Alcohol Screen Question Answer Notes Did you have a drink containing alcohol in the p ast year? No Points 0 Interpretation Negative PROBLEMS Problem Type ICD Code Onset Dates Problem Status W/U Status Risk SNOMED Code Notes Problem Abnormal findings in stool (R19.5) Active confirmed [id number] Problem Colon cancer screening (Z12.11) Active confirmed [id number] VITAL SIGNS Temperature 97.9 degrees Fahrenheit 10/15/2023 Blood pressure diastolic 00 mm Hg 10/15/2023 Height 66 in 10/15/2023 Blood pressure systolic 000 mm Hg 10/15/2023 Weight 203 lb 6 oz lbs 10/15/2023 BMI 32.82 kg/m2 10/15/2023 Encounters Encounter Location Date Provider Diagnosis [facility] Outpatient [address] [place] [id number] 12/12/2023 Russell Cuadra Jr [facility] Outpatient [address] [place] [id number] 02/03/2024 Russell Cuadra Jr [facility] [address] [place] [phone] 10/15/2023 Russell Cuadra Jr Colon cancer screening Z12.11 [facility] [address] [place] [phone] 06/04/2023 Russell Cuadra Jr [facility] [address] [place] [phone] 11/05/2023 Russell Cuadra Jr ASSESSMENTS Encounter Date Diagnosis Assessment Notes Treatment Notes Treatment Clinical Notes 10/15/2023 Colon cancer screening (ICD-10 - Z12.11) Colonoscopy material was printed PLAN OF TREATMENT Pending Test Test Name Order Date US RENAL BILATERAL 05/06/2019 Future Test Test Name Order Date COLONOSCOPY 03/25/2019 COLONOSCOPY CONTROL OF BLEEDING ANY METH OD 10/15/2023 Next Appt Details Provider Name:Russell gentile Jr, 02/03/2024 07:30:00 AM, [address] [place] [address], [phone], Insurance Providers Payer Name Payer Address Payer Phone Subscriber Number Group Number Insured Name Patient Relationship to Insured Coverage Start Date Coverage End Date [place] OF [place] [address] [place] [id number] ADONAY BRENNER Self - patient is the insured MEDICAID OF [facility] [address] [place] [address] [id number] ADONAY BRENNER Self - patient is the insured MEDICAL (GENERAL) HISTORY Medical History History ICD Code seizures hypertension elevated cholesterol intellectual disability depression Colonoscopy 03/25, limited to hepatic flexure due to prep. Followup CT colonography also limited. Five-year followup Surgical History Surgery Date(Month/Year) bilateral ankle/foot surgery 1978
[2024-02-03 06:30] VITALS: BMI 32.0
[2024-02-03] MEDS: Sodium Phosphate,Mono-Dibasic 133 ML ENEMA PR (07:00)
[2024-02-03 07:01] VITALS: BP 139/88; PULSE 73; RESP 16; TEMP 36.6; O2SAT 94
--- NOTE | 2024-02-03 07:31 | MHC.SHP ---
Pre-Procedural Eval Section A - 24 Hr Update-Section A only Date of Service: 02/03/24 Section B - Complete if H&P > 30 days Chief Complaint: Encounter for screening for malignant neoplasm of Details of Present Illness: see H&P no changes Relevant Family History (Specify if Yes): No Relevant Social History: None Present Medications: see Short Stay Collaborative assessment Medical History: No relevant PMH Allergies: Allergies Allergy/AdvReac Type Severity Reaction Status Date / Time No Known Allergies Allergy Verified 02/03/24 06:43 Review of Systems Sugical H&P ROS: Negative: Constitution, Cardiovascular, Respiratory, Neurological, Psychiatric, Hem-Onc, Allergic/Immunologic, Gastrointestinal, Genitourinary, Musculoskeletal, Integumentary, Endocrine and Eyes/Ears/Nose/Throat Exam Surgical H&P Exam: Normal: HEENT, Normal: Heart, Normal: Lungs, Normal: Extremities, Normal: Abdomen, Normal: Skin and Normal: Neurological Plan Diagnosis/Plan: Unchanged I have reviewed the history and physical and performed a pertinent physical examination on my patient. No changes have occurred unless specified. Time Spent With Patient Time: Total time managing care of this patient today ____ minutes.
--- NOTE | 2024-02-03 07:49 | HO.ANESPROP2 ---
HPI - Anesthesia Eval Consult details Narrative: 63 M colonoscopy PMF Active Problems Active Problems: All Active Problems Osteoarthritis of left ankle (Acute) Urinary frequency (Acute) Past Medical History Medical History Depression Seizures Intellectual disability Urinary frequency Family History Family history of problems with anesthesia: No Surgical History Surgical History H/O colonoscopy History of foot surgery History of Problems with Anesthesia: No Social History Social History Patient Tobacco Use Status: Never used Tobacco Use of substances other than those prescribed or required for medical reasons: No Are you DNR?: No Advance Directives: No Advance Directives Information Provided: Yes Advance Directives Date on File: 04/10/20 Current occupational status: unemployed and disabled Meds Allergies Allergy/AdvReac Type Severity Reaction Status Date / Time No Known Allergies Allergy Verified 02/03/24 06:43 Active Medications: Current Medications Sodium Biphosphate/Sodium Phosphate (Sodium Phosphate,[place]-Dibasic 133 Ml Enema) 133 ml [place] ONCE PRN PRN Reason: Pre-Op Surgical Prep Last Admin: 02/03/24 07:00 Dose: 133 ml Home Medications ?Medication ?Instructions ?Recorded ?Confirmed ?Last Taken ?Type phenytoin sodium extended 100 mg 100 mg PO TID 10/04/21 02/03/24 02/02/24 History capsule hydroxyzine HCl 25 mg tablet 25 mg PO BEDTIME 02/27/22 01/30/24 Unknown History hydroxyzine pamoate 50 mg capsule 50 mg PO DAILY PRN Anxiety 05/13/22 01/30/24 Unknown History sertraline 50 mg tablet 50 mg PO DAILY 05/28/23 02/03/24 02/02/24 History atorvastatin 20 mg tablet 20 mg PO DAILY 09/25/23 02/03/24 02/02/24 History lisinopril 10 mg tablet 10 mg PO DAILY 01/30/24 02/03/24 02/02/24 History Exam Height,Weight and Vital Signs: Height 5 ft 6 in Weight 198 lb Last Vital Signs Temp 97.8 F 02/03/24 07:01 Pulse 73 02/03/24 07:01 Resp 16 02/03/24 07:01 BP 139/88 02/03/24 07:01 Pulse Ox 94 02/03/24 07:01 O2 Del Method Room Air 02/03/24 07:01 Airway Mallampati Class: II TM Dist: >3cm Neck ROM: Full Loose/Missing/Broken Teeth: Yes Assessment and Plan Final Anesthetic Review Family History of Problems with Anesthesia: No History of Problems with Anesthesia: No NPO: Yes ASA Class: III Final Preanesthetic Review: No Changes in Pt Med Stat, Meds/Allgs Chart Reviewed, Consent Obtained/Reviewed and Anes Risks/Benef Reviewed Patient Risk: Intermediate Procedure Risk: Low Anesthetic Plan Anesthetic Plan: MAC: Disposition: Standard PACU
[2024-02-03 08:15] VITALS: BP 111/78; PULSE 75; RESP 16; TEMP 36.2; O2SAT 95
[2024-02-03 08:30] VITALS: BP 132/83; PULSE 63; RESP 18; TEMP 36.2; O2SAT 96
--- NOTE | 2024-02-03 08:37 | OP_ITS ---
DATE OF SERVICE: 02/03/2024 SURGEON: Russell Cuadra MD INDICATIONS: Colon cancer screening and family history of colon polyps. PREOPERATIVE DIAGNOSIS: POSTOPERATIVE DIAGNOSIS: PROCEDURE PERFORMED: Colonoscopy to the transverse colon. ESTIMATED BLOOD LOSS: COMPLICATIONS: ANESTHESIA: Monitored anesthesia care. ASSISTANTS: SPECIMENS: DESCRIPTION OF PROCEDURE: A history and physical were performed. The risks and benefits of the procedure were explained to the patient and his niece, and informed consent was obtained. The patient was placed in the left lateral decubitus position. A digital rectal exam was performed and was found to be normal. The Olympus pediatric video colonoscope was introduced into the rectum and advanced to the cecum. The cecum was identified by transillumination, palpation, and identification of ileocecal valve. Examination was performed and the scope was removed. He tolerated the procedure well and was taken to recovery in stable condition. FINDINGS: The terminal ileum was not examined. The scope could only be advanced to the mid transverse colon due to the poor prep. This limited the examination for detection of small polyps. No polyps were identified. The prep was poor with no polyps being seen. The exam was extremely limited. Retroflexed examination was limited, but was negative. IMPRESSION: 1. Incomplete colonoscopy. 2. Limited examination as above. RECOMMENDATIONS: 1. Follow up as needed. 2. Repeat colonoscopy with a 2-day prep could be considered depending on the patient and family's wishes. MD NILS Cox/GEOVANI / [id number]
== END 2024-02-03 08:59 | disposition home or self-care (01) ==
PROVIDERS: PCP Internal Medicine; Visit Provider Internal Medicine Gastroenterology
PROC: 0DJD8ZZ Inspection of Lower Intestinal Tract, Via Natural or Artificial Opening Endoscopic (ICD-10-PCS; CPT 45378; principal; 2024-02-03 07:30)
DX: Z12.11 Encounter for screening for malignant neoplasm of colon (principal); Z83.719 Family history of colon polyps, unspecified; F79 Unspecified intellectual disabilities; R56.9 Unspecified convulsions; I10 Essential (primary) hypertension; E78.00 Pure hypercholesterolemia, unspecified; F32.A Depression, unspecified; Z79.899 Other long term (current) drug therapy; Z98.890 Other specified postprocedural states
CPT/HCPCS: G0105; J2704

== ENCOUNTER 2024-03-18 09:15 | Outpatient (REF) | payer MEDICARE, MEDICAID, SELFPAY ==
[2024-03-18 10:37] LABS: Estimated Average Glucose 114 mg/dL; Hemoglobin A1C 150.4186 umol/L; Hemoglobin A1c % 5.6 % (<6.0)
[2024-03-18 11:03] LABS: Alanine Aminotransferase 19 U/L (0-40); Albumin Level 4.2 g/dL (3.5-5.0); Alkaline Phosphatase 83 U/L (39-117); Anion Gap 11 (12-20); Aspartate Amino Transferase 16 U/L (5-37); Bilirubin Total 0.3 mg/dL (0.0-1.0); Blood Urea Nitrogen 13 mg/dL (9-16); Calcium 9.2 mg/dL (8.4-10.2); Carbon Dioxide 26 mmol/L (22-29); Chloride 105 mmol/L (96-108); Estimated Glomerular Filt Rate > 60; Glucose Random 108 mg/dL (60-115); Potassium 3.8 mmol/L (3.3-5.1); Sodium 138 mmol/L (135-145); Total Protein 7.7 g/dL (6.5-8.0)
== END 2024-03-18 09:16 | disposition home or self-care (01) ==
LOC: HO.10HDL 09:15
PROVIDERS: Visit Provider Internal Medicine
DX: E78.00 Pure hypercholesterolemia, unspecified (principal); G40.109 Localization-related (focal) (partial) symptomatic epilepsy and epileptic syndromes with simple partial seizures, not intractable, without status epilepticus; I10 Essential (primary) hypertension; R73.01 Impaired fasting glucose
CPT/HCPCS: 36415; 80053; 83036

== ENCOUNTER 2024-08-25 07:34 | Outpatient (REF) | payer MEDICARE, MEDICAID, SELFPAY ==
--- NOTE | ~2024-08-25 | XR_ITS ---
EXAMINATION: XR HAND, LEFT CLINICAL INFORMATION: LUMP LEFT HAND COMPARISON: None available. TECHNIQUE: PA, lateral, and oblique views of the left hand. FINDINGS: No fracture, dislocation, or suspicious bone lesion. Normal bone mineralization. Normal alignment. Joint spaces are preserved. No significant arthropathy. There is a soft tissue prominence abutting the ulnar styloid in the dorsomedial wrist. XR/XR hand LT 2V IMPRESSION: 1. No acute bony abnormalities. 2. Soft tissue prominence in the dorsomedial wrist. Electronically signed by: Tyler Arana MD 08/25/2024 01:11 PM KRYSTA
--- OUTSIDE RECORDS SUMMARY | 2024-08-25 07:37 | XMS_ITS ---
Author Organization [facility] Address [address] [place] [address] Care Team Providers Care Center Mgr Name Role Phone Bri Peng Primary Care Provider Unavailab Russell Galvan Jr REASON FOR VISIT r/s Encounters Encounter Location Date Provider Diagnosis [facility] [address] [place] [address] 11/05/2023 Russell Cuadra Jr PLAN OF TREATMENT No Information
--- OUTSIDE RECORDS SUMMARY | 2024-08-25 07:37 | XMS_ITS ---
Author Organization [facility] Address [address] [place] [address] Care Team Providers Care String Studies Director Name Role Phone Chucky Pengnima Primary Care Provider Unavailab Russell Galvan Jr REASON FOR VISIT SCREENING COLON Encounters Encounter Location Date Provider Diagnosis [facility] [place] Outpatient [address] [place] [id number] 12/12/2023 Russell Cuadra Jr PLAN OF TREATMENT No Information
--- OUTSIDE RECORDS SUMMARY | 2024-08-25 07:37 | XMS_ITS ---
Author Organization [facility] Address [address] [place] [address] Care Team Providers Care Medical Assistant Supervisor Name Role Phone Bri Peng Primary Care Provider Unavailab Russell Galvan Jr Unavailable REASON FOR VISIT screening Encounters Encounter Location Date Provider Diagnosis [facility] [place] [place] Outpatient [address] [place] [id number] 02/03/2024 Russell Cuadra Jr Colon cancer screening Z12.11 and FH: colon polyps Z83.719 ASSESSMENTS Encounter Date Diagnosis Assessment Notes Treatment Notes Treatment Clinical Notes 02/03/2024 Colon cancer screening (ICD-10 - Z12.11) 02/03/2024 FH: colon polyps (ICD-10 - Z83.719) PLAN OF TREATMENT No Information
--- OUTSIDE RECORDS SUMMARY | 2024-08-25 07:38 | XMS_ITS | Patient Health Record ---
Author Organization [facility] Address [address] [place] [address] Care Team Providers Care Levee Superintendent Name Role Phone Bri Peng Primary Care [...] Abnormal findings in stool (R19.5) Active confirmed 608965669 Problem Colon cancer screening (Z12.11) Active confirmed 131463109 VITAL SIGNS Temperature 97.9 degrees Fahrenheit 10/15/2023 Blood pressure diastolic 00 mm Hg 10/15/2023 Height 66 in 10/15/2023 Blood pressure systolic 000 mm Hg 10/15/2023 Weight 203 lb 6 oz lbs 10/15/2023 BMI 32.82 kg/m2 10/15/2023 Encounters Encounter Location Date Provider Diagnosis [facility] [place] [address] [place] [id number] 12/12/2023 Russell Cuadra Jr [facility] [place] [address], [place] [id number] 02/03/2024 Russell Cuadra Jr Colon cancer screening Z12.11 and FH: colon polyps Z83.719 [facility] [address] [place] [phone] 10/15/2023 Russell Cuadra Jr Colon cancer screening Z12.11 [facility] [address] [place] [phone] 11/05/2023 Russell Cuadra Jr ASSESSMENTS Encounter Date Diagnosis Assessment Notes Treatment Notes Treatment Clinical Notes 02/03/2024 Colon cancer screening (ICD-10 - Z12.11) 02/03/2024 FH: colon polyps (ICD-10 - Z83.719) 10/15/2023 Colon cancer screening (ICD-10 - Z12.11) Colonoscopy material was printed PLAN OF TREATMENT Pending Test Test Name Order Date US RENAL BILATERAL 05/06/2019 Future Test Test Name Order Date COLONOSCOPY 03/25/2019 COLONOSCOPY CONTROL OF BLEEDING ANY METH OD 10/15/2023 Insurance Providers Payer Name Payer Address Payer Phone Subscriber Number Group Number Insured Name Patient Relationship to Insured Coverage Start Date Coverage End Date [place] [address] [place] [id number] ELIDIA ADONAY Self - patient is the insured MEDICAID OF [facility] [id number] [address] [place] [phone] [id number] ELIDIA ADONAY Self - patient is the insured MEDICAL (GENERAL) HISTORY Medical History History ICD Code seizures hypertension elevated cholesterol intellectual disability depression Colonoscopy 03/25, limited to hepatic flexure due to prep. Followup CT colonography also limited. Five-year followup Surgical History Surgery Date(Month/Year) bilateral ankle/foot surgery 1978
[2024-08-25 08:58] LABS: Alanine Aminotransferase 37 U/L (0-40); Albumin Level 4.4 g/dL (3.5-5.0); Alkaline Phosphatase 98 U/L (39-117); Anion Gap 11 (12-20); Aspartate Amino Transferase 24 U/L (5-37); Bilirubin Total 0.4 mg/dL (0.0-1.0); Blood Urea Nitrogen 12 mg/dL (9-16); Calcium 9.6 mg/dL (8.4-10.2); Carbon Dioxide 28 mmol/L (22-29); Chloride 104 mmol/L (96-108); Cholesterol 139 mg/dL (<200); Estimated Glomerular Filt Rate > 60; Glucose Random 126 mg/dL (60-115); HDL Cholesterol 32 mg/dL (>40); LDL Cholesterol Calculated 75 mg/dL (<100); Potassium 4.2 mmol/L (3.3-5.1); Sodium 139 mmol/L (135-145); Total Protein 8.4 g/dL (6.5-8.0); Triglycerides 162 mg/dL (<150)
[2024-08-25 09:15] LABS: Prostate Specific Antigen Scr 1.98 ng/mL (<0.05-4.0); Thyroid Stimulating Hormone 2.13 uIU/mL (0.32-4.0)
[2024-08-25 09:27] LABS: Phenytoin Dilantin 5.1 ug/mL (10.0-20.0)
== END 2024-08-25 07:35 | disposition home or self-care (01) ==
LOC: HO.LAB 07:34
PROVIDERS: PCP Internal Medicine; Visit Provider Internal Medicine
DX: E78.00 Pure hypercholesterolemia, unspecified (principal); Z12.5 Encounter for screening for malignant neoplasm of prostate; F32.5 Major depressive disorder, single episode, in full remission; G40.109 Localization-related (focal) (partial) symptomatic epilepsy and epileptic syndromes with simple partial seizures, not intractable, without status epilepticus; H11.153 Pinguecula, bilateral; I10 Essential (primary) hypertension; R41.89 Other symptoms and signs involving cognitive functions and awareness
CPT/HCPCS: 36415; 73120; 80053; 80061; 80185; 84153; 84443

== ENCOUNTER → 2024-08-25 07:40 | Outpatient (BNV) | payer MEDICARE, MEDICAID, SELFPAY | PROVIDERS: PCP Internal Medicine; Visit Provider Radiology Diagnostic Radiology | DX: M79.642 Pain in left hand (principal) | CPT/HCPCS: 73120 ==

== ENCOUNTER 2025-03-21 08:36 | Outpatient (REF) | payer MEDICARE, MEDICAID, SELFPAY ==
--- OUTSIDE RECORDS SUMMARY | 2023-12-12 05:20 | XMS_ITS ---
Author Organization [facility] Address [address] [place] [address] Care Team Providers Care Under Cutting Machine Operator Name Role Phone Bri Peng Primary Care Provider Unavailab Russell Galvan Jr REASON FOR VISIT SCREENING COLON Encounters Encounter Location Date Provider Diagnosis [facility] [place] [facility] Outpatient [address] [place] [id number] 12/12/2023 Russell Cuadra Jr Plan Of Treatment No Information Progress Notes * BRENNERADONAY MAKIDOB:1960 (64 yo M)Acc No.[id number]:12/12/2023 COLON WITH MAC Patient: ADONAY LÓPEZ Provider: Letty Cuadra MD :1960 A ge:63 Y S ex:Male Date:12/12/2023 Address:[address] [place] [address], [place] [id number] Pcp:Bri Peng Subjective: * Chief Complaints: * 1 . SCREENING COLON. * Medical History: Objective: * Vitals: Assessment: Plan: * Treatment: * * The named appointment provid er may or may not be the originator of this progress note, and it is not deemed complete until electronically signed by the appointment provider. Sign off status: Pending * Provider: Letty Cuadra MD Date: 0 12/12/2023 Generated for Gisselli ng/Fasalasg/eTransmitting on: 0 03/21/2025 09:52 AM EDT
--- OUTSIDE RECORDS SUMMARY | 2024-02-03 03:30 | XMS_ITS ---
Author Organization [facility] Address [address] [place] [address] Care Team Providers Care Electrician Outside Name Role Phone Bri Peng Primary Care Provider Unavailab Russell Galvan Jr REASON FOR VISIT screening Encounters Encounter Location Date Provider Diagnosis [facility] Outpatient [address] [place] [id number] 02/03/2024 Russell Cuadra Jr Colon cancer screening Z12.11 and FH: colon polyps Z83.719 Assessments Encounter Date Diagnosis (ICD Code) Assessment Notes Treatment Notes Treatment Clinical Notes Section Notes 02/03/2024 Colon cancer screening (ICD-10 - Z12.11) 02/03/2024 FH: colon polyps (ICD-10 - Z83.719) Plan Of Treatment No Information Progress Notes * ADONAY BRENNERDOB:1960 (64 yo M)Acc No.[id number]:02/03/2024 COLON WITH MAC Patient: ADONAY LÓPEZ Provider: Letty Cuadra MD :1960 A ge:63 Y S ex:Male Date:02/03/2024 Address:[address] [place] [address], [id number] Pcp:Bri Peng Subjective: * Chief Complaints: * 1 . Screening. * Medical History: Objective: * Vitals: Assessment: * Assessment: 1. C olon cancer screening - Z12.11 (Primary) 2 . F H: colon polyps - Z83.719 Plan: * Treatment: * Procedure Codes: G 0105 COLOREC CANCR SCR; COLNSCPY HI RISK, [address] DIAGNOSTIC COLONOSCOPY, Modifiers: 53 , 0529F INTRVL 3+YRS PTS CLNSCP DOCD * * The named appointment provid er may or may not be the originator of this progress note, and it is not deemed complete until electronically signed by the appointment provider. Sign off status: Pending * Provider: Letty Cuadra MD Date: 0 02/03/2024 Generated for Narcisa arias/Alisson/Dorinaransmitting on: 0 03/21/2025 09:52 AM EDT
--- OUTSIDE RECORDS SUMMARY | 2025-03-21 09:53 | XMS_ITS | Patient Health Record ---
Author Organization [facility] Address [address] [place] [address] Care Team Providers Care Tipping Machine Operator Name Role Phone Bri Peng Primary Care Provider UnavailRussell Samuels Jr Unavailable [phone] Allergies No Known Allergies Reason For Referral No Information Medications Medication SIG (Take, Route, Frequency, Duration) Notes [...] TIMES A DAY Oral for 90 Active Immunizations Vaccine Route Administration Date Status Comme nts Influenza Unknown 03/07/2018 Administered Influenza Unknown 05/27/2023 Administered Social History Tobacco Use: Social History Observation Description Date Details (start date - stop date) Never Smoker NA - NA Tobacco Use/Smoking Question Answer Notes Patient is a nonsmoker Alcohol Screen Question Answer Notes Did you have a drink containing alcohol in the p ast year? No Points 0 Interpretation Negative Problems Problem Type SNOMED Code ICD Code Onset Dates Problem Status W/U Status Risk Notes Problem [id number] Colon cancer screening (Z12.11) Active confirmed Problem 300137932 Abnormal findings in stool (R19.5) Active confirmed Plan Of Treatment Pending Test Test Name Order Date US RENAL BILATERAL 05/06/2019 Future Test Test Name Order Date COLONOSCOPY 03/25/2019 COLONOSCOPY CONTROL OF BLEEDING ANY METH OD 10/15/2023 Insurance Providers Payer Name Payer Address Payer Phone Subscriber Number Group Number Insured Name Patient Relationship to Insured Coverage Start Date Coverage End Date MEDICARE OF [place] [address] [place] [address] [id number] BRENNERADONAY Self - patient is the insured MEDICAID OF [facility] [address] [place] [id number] ADONAY BRENNER Self - patient is the insured Medical (General) History Medical History History ICD Code seizures hypertension elevated cholesterol intellectual disability depression Colonoscopy 03/25, limited to hepatic flexure due to prep. Followup CT colonography also limited. Five-year followup Surgical History Surgery Date(Month/Year) bilateral ankle/foot surgery 1977
[2025-03-21 10:41] LABS: MANUAL DIFF FLAG NO
[2025-03-21 10:45] LABS: Hematocrit 46.5 % (42.0-52.0); Hemoglobin 16.4 g/dl (14.0-18.0); Imm Gran Abs Auto 0.04 X10*3/uL (0.00-0.03); Imm Gran Pct Auto 0.4 % (0.0-0.4); Lymphocytes Absolute Auto 1.8 X10*3/uL (1.2-4.9); Mean Corpuscular HGB Conc 35.3 g/dl (31.0-36.0); Mean Corpuscular Hemoglobin 32.0 pg (27.0-33.0); Mean Corpuscular Volume 90.8 fL (80.0-98.0); NRBC Abs Auto 0.000 X10*3/uL (0.0-0.012); NRBC Pct Auto 0.0 /100WBC (0.0-0.2); Platelet Count 248 X10*3/uL (160-400); Red Blood Count 5.12 X10*6/uL (4.60-5.80); White Blood Count 9.5 X10*3/uL (4.8-10.8)
[2025-03-21 11:07] LABS: Alanine Aminotransferase 30 U/L (0-40); Albumin Level 4.4 g/dL (3.5-5.0); Alkaline Phosphatase 100 U/L (39-117); Anion Gap 13 (12-20); Aspartate Amino Transferase 24 U/L (5-37); Blood Urea Nitrogen 12 mg/dL (9-16); Calcium 9.1 mg/dL (8.4-10.2); Carbon Dioxide 25 mmol/L (22-29); Chloride 105 mmol/L (96-108); Estimated Glomerular Filt Rate > 60; Potassium 3.6 mmol/L (3.3-5.1); Sodium 139 mmol/L (135-145); Total Protein 7.8 g/dL (6.5-8.0)
[2025-03-21 11:37] LABS: Hemoglobin A1C 179.8091 umol/L; Total Hemoglobin (HGBA1C) 4223.7605 umol/L
[2025-03-21 11:38] LABS: Folate 12.5 ng/mL (> or = 4.0)
== END 2025-03-21 08:37 | disposition home or self-care (01) ==
LOC: HO.10HDL 08:36
PROVIDERS: Visit Provider Internal Medicine
DX: I10 Essential (primary) hypertension (principal); R73.01 Impaired fasting glucose; E78.00 Pure hypercholesterolemia, unspecified; G40.109 Localization-related (focal) (partial) symptomatic epilepsy and epileptic syndromes with simple partial seizures, not intractable, without status epilepticus
CPT/HCPCS: 36415; 80053; 82746; 83036; 85025